=== PATIENT | male | born 1995 | race Hispanic/Latino ===

== ENCOUNTER → 2017-08-12 | Outpatient (CLI) | payer BC ==
--- NOTE | 2017-08-12 14:16 | Diagnostic Imaging Report ---
PROCEDURE:US RETROPERITONEAL ( KIDNEY ). COMPARISON:None. INDICATIONS:HTN AT YOUNG AGE TECHNIQUE: Rosenthal-scale and color sonographic images of the bilateral kidneys and bladder where obtained in transverse and longitudinal planes. FINDINGS: RIGHT KIDNEY: 10.7 cm in length, cortical thickness 1.4 cm. Cysts: Questionable 1.5 cm cyst in the lower pole of the right kidney. Solid masses: None Stones: None Hydronephrosis: None Echogenicity: Normal renal cortical echogenicity. LEFT KIDNEY: 12.1 cm in length, cortical thickness 1.4 cm Cysts: None Solid masses: None Stones: None Hydronephrosis: None Echogenicity: Normal renal cortical echogenicity. Bladder: Unremarkable. Right and left ureteral jets are identified. CONCLUSION: Questionable 1.5 cm cyst in the lower pole of the right kidney. CT scan of the abdomen and pelvis with and without contrast (renal protocol) is suggested for further evaluation. Otherwise unremarkable sonographic appearance of the kidneys. Dictated by: Yosvany Rodgers M.D. on 08/12/2017 at 14:16 Electronically approved by: Yosvany Rodgers M.D. on 08/12/2017 at 14:16
--- NOTE | 2017-08-12 14:18 | Diagnostic Imaging Report ---
PROCEDURE: RENAL DOPPLER ULTRASOUND COMPARISON:None. INDICATIONS:HTN AT YOUNG AGE FINDINGS: Multiple sagittal and axial images of the right and left kidneys were obtained. RIGHT KIDNEY: The right kidney measures 10.7 cm. The cortical thickness is 1.4 cm. The right kidney has normal echogenicity. The highest right main renal artery PSV is 51.1 cm/sec. The highest right segmental artery PSV is 37.4 cm/sec. LEFT KIDNEY: The left kidney measures 12.1 cm. The cortical thickness is 1.6 cm. The left kidney has normal echogenicity. The highest left main renal artery PSV is 57.5 cm/sec. The highest left segmental artery PSV is 48.3 cm/sec. The abdominal aorta PSV is 60.6 cm/sec. The right renal artery/aorta ratio is 0.84 The left renal artery/aorta ratio is 0.94. The right and left renal veins are patent. The bladder is unremarkable. CONCLUSION: No sonographic evidence of renal artery stenosis. Dictated by: Yosvany Rodgers M.D. on 08/12/2017 at 14:18 Electronically approved by: Yosvany Rodgers M.D. on 08/12/2017 at 14:18
== END ==
LOC: US 09:55
PROVIDERS: ATTEND Internal Medicine Cardiovascular Disease
DX: I10 Essential (primary) hypertension (principal)
CPT/HCPCS: 76770; 93976

== ENCOUNTER → 2017-11-21 | Outpatient (CLI) | payer BC ==
[~2017-11-21] MED LIST: IOPAMIDOL 370 MG/ML 200 ML INFUS..BTL INJ ONE; SODIUM CHLORIDE 0.9% 50ML 50 ML ONE
[2017-11-21 14:39] LABS: BLOOD UREA NITROGEN 10 mg/dL (7-26); BUN/CREATININE RATIO 11 (6-25); CREATININE, SERUM 0.92 mg/dL (0.72-1.25); EST GLOMERULAR FILTRATION RATE > 60 ML/MIN (60-)
--- NOTE | 2017-11-21 16:25 | Diagnostic Imaging Report ---
EXAM: CT Abdomen and Pelvis WITHOUT and WITH contrast INDICATION: \[id number] \S\[id number] \S\RENAL MASS / CYST RIGHT LOWER POLE COMPARISON: Renal ultrasound dated 08/12/2017 TECHNIQUE: Abdomen and pelvis were scanned utilizing a multidetector helical scanner from the lung base to the pubic symphysis before and after administration of IV contrast. Coronal and sagittal reformations were obtained. Renal mass protocol was performed. Scan was performed pre-, nephrographic, and 4 minute delayed phase. IV CONTRAST: 100 mL of Isovue-370 ORAL CONTRAST: None. COMPLICATIONS: None RADIATION DOSE: Total DLP: 1478.33 mGy*cm Estimated effective dose: (DLP x 0.015 x size factor) mSv CTDIvol has been reviewed. It is below the limits set by the Radiation Protocol Committee (RPC). FINDINGS: LINES and TUBES: None. LOWER THORAX: Bibasilar mild atelectasis/scarring. HEPATOBILIARY: No focal hepatic lesions. No biliary ductal dilation. GALLBLADDER: No radio-opaque stones or sludge. No wall thickening. SPLEEN: No splenomegaly. PANCREAS: No focal masses or ductal dilatation. ADRENALS: No adrenal nodules KIDNEYS/URETERS: Kidneys enhance symmetrically. No hydronephrosis. No cystic or solid mass lesions. No stones. Collecting System: Patent Renal Artery: Patent Renal Vein: Patent IVC: Patent GI TRACT: No abnormal distention, wall thickening, or evidence of bowel obstruction. Appendix is absent. PELVIC ORGANS/BLADDER: Unremarkable. LYMPH NODES: No lymphadenopathy. VESSELS: Unremarkable. PERITONEUM / RETROPERITONEUM: No free air or fluid. BONES: Unremarkable. SOFT TISSUES: Unremarkable. IMPRESSION: 1. No right renal lesion visualized on today's exam, to correspond to the questionable lower pole cyst, noted on ultrasound dated 08/12/2017. Signed by: Dr. Forrest Robertson MD on 11/21/2017 4:22 PM
== END ==
LOC: CT 13:52
PROVIDERS: ATTEND Internal Medicine Cardiovascular Disease
DX: N28.1 Cyst of kidney, acquired (principal)
CPT/HCPCS: 36415; 74178; 82565; 84520; Q9967